=== PATIENT | female | born 1965 | race Caucasian/White ===

== ENCOUNTER 2020-09-22 05:00 | Day surgery (SDC) | payer OTHER ==
[~2020-09-22 05:00] MED LIST: ATACAND HCT 321 EACH PO; ATORVASTATIN CA10 MG PO; PROPRANOLOL HCL60 MG PO; SYNTHROID50 MCG PO
[2020-09-22] MEDS ORDERED: PERCOCET 5-3251 EACH PO (10:07)
[2020-09-22] MEDS ORDERED: NEURONTIN600 M1 PO (10:08)
[2020-09-22] MEDS ORDERED: COLACE100 MG PO (10:08)
== END 2020-09-22 12:50 | disposition home or self-care (01) ==
LOC: CIR.AMB 05:00
PROVIDERS: ATTEND Surgery
DX: K40.20 Bilateral inguinal hernia, without obstruction or gangrene, not specified as recurrent (principal); Z20.822 Contact with and (suspected) exposure to COVID-19

== ENCOUNTER 2022-01-11 09:14 | Emergency (ER) | payer OTHER ==
[~2022-01-11] VITALS: Ht 162.6 cm; Wt 64.0 kg
[~2022-01-11 09:14] MED LIST changes: +COLACE100 MG PO; +NEURONTIN600 M1 PO; +PERCOCET 5-3251 EACH PO
[2022-01-11] MEDS ORDERED: CRESTOR10 MG PO (09:24)
[2022-01-11] MEDS ORDERED: ORPHENADRINE C100 MG PO (10:58)
== END 2022-01-11 11:19 | disposition home or self-care (01) ==
LOC: ER 09:14
DX: M53.86 Other specified dorsopathies, lumbar region (principal); M51.17 Intervertebral disc disorders with radiculopathy, lumbosacral region; Z88.6 Allergy status to analgesic agent; Z91.040 Latex allergy status; I10 Essential (primary) hypertension; D47.2 Monoclonal gammopathy

== ENCOUNTER 2023-06-20 10:05 | Emergency (ER) | payer OTHER ==
[~2023-06-20] VITALS: Ht 162.6 cm; Wt 61.7 kg
[~2023-06-20 10:05] MED LIST changes: +CRESTOR10 MG PO; +ORPHENADRINE C100 MG PO
[2023-06-20] MEDS ORDERED: NORFLEX100MG PO (10:36)
== END 2023-06-20 11:13 | disposition home or self-care (01) ==
LOC: ER 10:05
DX: M54.2 Cervicalgia (principal); Z88.6 Allergy status to analgesic agent; Z91.040 Latex allergy status

== ENCOUNTER 2024-02-07 09:41 | Emergency (ER) | payer OTHER ==
[~2024-02-07] VITALS: Ht 157.5 cm; Wt 63.5 kg
[~2024-02-07 09:41] MED LIST changes: +NORFLEX100MG PO
[2024-02-07] MEDS ORDERED: KETOROLAC TROMETHAMINE 15 MG VIAL IV STA (10:58)
[2024-02-07] MEDS ORDERED: METHYLPREDNISOLONE SOD SUCC 40 MG VIAL IV STA (10:58)
[2024-02-07] MEDS ORDERED: ORPHENADRINE CITRATE 30 MG/ML AMPUL IM STA (10:59)
[2024-02-07] MEDS ORDERED: ORPHENADRINE CITRATE 30 MG/ML AMPUL ONE (11:03)
[2024-02-07] MEDS ORDERED: KETOROLAC TROMETHAMINE 30 MG VIAL ONE (11:04)
[2024-02-07] MEDS ORDERED: METHYLPREDNISOLONE SOD SUCC 40 MG VIAL ONE (11:04)
[2024-02-07] MEDS ORDERED: TYLENOL ARTHRI650 MG PO (14:30)
[2024-02-07] MEDS ORDERED: NORFLEX100MG PO (14:30)
[2024-02-07] MEDS ORDERED: MEDROLPACK PO (14:30)
== END 2024-02-07 14:46 | disposition home or self-care (01) ==
LOC: ER 09:41
DX: S13.9XXA Sprain of joints and ligaments of unspecified parts of neck, initial encounter (principal); Z88.6 Allergy status to analgesic agent; Z91.040 Latex allergy status; I10 Essential (primary) hypertension

== ENCOUNTER 2024-08-11 10:52 | Emergency (ER) | payer OTHER ==
[~2024-08-11] VITALS: Ht 157.5 cm; Wt 62.6 kg
[~2024-08-11 10:52] MED LIST changes: +MEDROLPACK PO; +TYLENOL ARTHRI650 MG PO
[2024-08-11] MEDS ORDERED: ORPHENADRINE CITRATE 30 MG/ML AMPUL IM ONE (12:30)
[2024-08-11] MEDS ORDERED: TRAMADOL HCL 50 MG TABLET PO ONE (12:30)
[2024-08-11] MEDS ORDERED: ORPHENADRINE CITRATE 30 MG/ML AMPUL ONE (12:34)
[2024-08-11] MEDS ORDERED: NORFLEX100MG PO (13:39)
== END 2024-08-11 14:22 | disposition home or self-care (01) ==
LOC: ER 10:54
DX: M62.838 Other muscle spasm (principal); Z91.041 Radiographic dye allergy status; Z88.6 Allergy status to analgesic agent; E03.8 Other specified hypothyroidism; I10 Essential (primary) hypertension